=== PATIENT | female | born 1990 | race African-American/Black ===

== ENCOUNTER 2018-03-14 21:31 | Emergency (ER) | payer MEDICAID, OTHER ==
[~2018-03-14] VITALS: Ht 162.6 cm; Wt 73.0 kg
[2018-03-14] MEDS ORDERED: SODIUM CHLORIDE 0.9% 1,000 ML IV ONE (23:12)
[2018-03-14] MEDS ORDERED: ONDANSETRON HCL 4MG/2ML INJ IV STA (23:12)
[2018-03-14] MEDS ORDERED: KETOROLAC 30MG/ML VIAL IV STA (23:12)
[2018-03-15 03:42] VITALS: BP 135/87
== END 2018-03-15 03:44 | disposition home or self-care (01) ==
LOC: ER 21:31
DX: S16.1XXA Strain of muscle, fascia and tendon at neck level, initial encounter (principal); S39.012A Strain of muscle, fascia and tendon of lower back, initial encounter; S09.8XXA Other specified injuries of head, initial encounter; F17.200 Nicotine dependence, unspecified, uncomplicated; V89.2XXA Person injured in unspecified motor-vehicle accident, traffic, initial encounter; Y93.89 Activity, other specified; Y92.89 Other specified places as the place of occurrence of the external cause; Y99.8 Other external cause status; Z98.890 Other specified postprocedural states
CPT/HCPCS: 70450; 71045; 72040; 72100; 81025; 96374; 96375; 99285; J1885; J2405; J7030; Z7610